=== PATIENT | male | born 2000 | race Two or more races ===

== ENCOUNTER 2024-12-21 08:18 | Emergency (ER) | payer OTHER ==
[~2024-12-21] VITALS: Ht 167.6 cm; Wt 59.0 kg
== END 2024-12-21 11:32 | disposition home or self-care (01) ==
LOC: ER 08:18
DX: M79.662 Pain in left lower leg (principal); W57.XXXA Bitten or stung by nonvenomous insect and other nonvenomous arthropods, initial encounter; Z91.013 Allergy to seafood